=== PATIENT | male | born 1990 | race Two or more races ===

== ENCOUNTER 2025-11-10 22:22 | Emergency (ER) | payer OTHER, SELFPAY ==
[2025-11-10 22:50] VITALS: BP 186/110; PULSE 92; RESP 20; TEMP 36.7; O2SAT 98; BMI 25.2
--- NOTE | 2025-11-10 23:11 | EKG_ITS ---
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
--- NOTE | 2025-11-10 23:11 | XR_ITS ---
Examination: CT brain head without contrast. 2-D sagittal coronal reconstructions Date and time of exam: November 10, 2025, 11:27 p.m. COMPARISON: February 11, 2024 INDICATIONS: Onset headache today CTDI: vol (mGy): 50.3 DLP: (mGycm): 975 Technique: Multiple CT axial sections of the brain have been obtained, 5 mm slice thickness. Contrast has not been administered. 2-D sagittal, coronal reconstructions have been obtained Low dose protocols were performed. One or more of the following dose reduction techniques were used; automated exposure control, adjustment of the mA and/or KV according to patient size, use of iterative reconstruction technique. Findings: No significant ventricular enlargement. Intra-axial or extra-axial hemorrhage density is not seen. No mass effect or midline shift Basal cisterns are not remarkable. Fourth ventricle is midline. Cranial vault intact. Impression: Negative for acute hemorrhage, mass effect or midline shift Advise clinical correlation and follow-up accordingly
--- NOTE | 2025-11-10 23:12 | PD.EDRME ---
Rapid Medical Screening Exam RME Arrival date/time: This is a case of 35-year-old male with history of diabetes and hypertension came in in the emergency room due to headache and dizziness today worsening of the symptoms this patient decided to start consulted in the emergency room Chief Complaint: Headache Time Seen by Provider: 11/10/25 23:06 Vital signs: Vital Signs Temperature 98.1 F 11/10/25 22:50 Pulse Rate 92 11/10/25 22:50 Respiratory Rate 20 11/10/25 22:50 Blood Pressure 186/110 H 11/10/25 22:50 Pulse Oximetry (%) 98 11/10/25 22:50 Oxygen Delivery Method Room Air 11/10/25 22:50 Exam: Neurological exam is normal awake alert oriented x 4 no focal deficit GCS 15/15 steady gait clear breath sound normal rate regular rhythm no murmur Clinical Impression: Headache
[2025-11-10 23:39] VITALS: BP 190/114; PULSE 78
[2025-11-10 23:39] LABS: Base Excess, Venous 6 (-3-3); O2 Saturation, Venous 66 % (96-97); PCO2, Venous 44 mmHg (36-56); PO2, Venous 32 mmHg (15-58); pH, Venous 7.45 (7.33-7.66)
[2025-11-10 23:41] LABS: Basophils # (Auto) 0.1 Thou/mm3 (0.0-0.2); Basophils % (Auto) 1 % (0-2.5); Eosinophils # (Auto) 0.3 Thou/mm3 (0.0-0.5); Eosinophils % (Auto) 2 % (0-10); Hematocrit 35.7 % (41.0-53.0); Hemoglobin 11.9 g/dL (13.5-16.0); Immature Granulocytes Auto 0.05 Thou/mm3 (0.00-0.00); Lymphocytes # (Auto) 4.9 Thou/mm3 (1.0-4.8); Lymphocytes % (Auto) 35 % (10-50); Mean Corpuscular HGB Conc 33.3 g/dl (31.0-37.0); Mean Corpuscular Hemoglobin 29.9 pg (25.0-35.0); Mean Corpuscular Volume 90 fL (80-100); Monocytes # (Auto) 1.0 Thou/mm3 (0.0-0.8); Monocytes % (Auto) 7 % (0-12); Neutrophils # (Auto) 7.5 Thou/mm3 (1.8-7.7); Neutrophils % (Auto) 54 % (37-80); Nucleated Red Blood Cell # 0.00 Thou/mm3 (0.00-0.00); Nucleated Red Blood Cell % 0 /100 WBC (0); Platelet Count 410 Thou/mm3 (140-440); RDW Standard Deviation 41.9 fL (35.1-43.9); Red Blood Count 3.98 Miln/mm3 (4.50-5.90); White Blood Count 13.8 Thou/mm3 (3.8-10.6)
[2025-11-10 23:43] VITALS: BP 190/114; PULSE 80; O2SAT 99
[2025-11-10 23:48] LABS: Beta Hydroxybutyrate 0.1 mmol/L (<0.6)
[2025-11-11 00:02] LABS: Alanine Aminotransferase 42 U/L (10-49); Albumin, Serum 3.1 gm/dL (3.5-5.0); Albumin/Globulin Ratio 1.2 (1.2-2.2); Alkaline Phosphatase 105 U/L (46-116); Anion Gap 7 (7-16); Aspartate Amino Transferase 48 U/L (0-34); BUN/Creatinine Ratio 11 Ratio (12-20); Bilirubin,Total 0.3 mg/dL (0.3-1.2); Blood Urea Nitrogen 13 mg/dL (9-23); Calcium 8.1 mg/dL (8.3-10.6); Calcium (Corrected) 8.8 mg/dL (8.5-10.1); Carbon Dioxide 30.7 mMol/L (20.0-31.0); Chloride 106 mMol/L (98-107); Creatinine (Component) 1.2 mg/dL (0.6-1.3); Estimated Creatinine Clearance 77.5 mL/min (>60); Globulin 2.6 gm/dL (2.3-3.5); Glucose 195 mg/dL (74-106); Osmolality,Calculated 291 (275-295); Potassium 3.9 mMol/L (3.4-5.1); Sodium 144 mMol/L (136-145); Total Protein 5.7 gm/dL (5.7-8.2); Troponin I < 0.020 ng/mL (0.0-0.045); eGFR > 60 See Note
[2025-11-11 00:39] VITALS: BP 133/89; PULSE 87; RESP 16; TEMP 36.7; O2SAT 98
--- NOTE | 2025-11-11 01:17 | EDNOTE_ITS ---
ED Headache RME/HPI General Chief Complaint: Headache Stated Complaint: HEADACHE Time Seen by Provider: 11/10/25 23:06 Arrival date/time: 11/10/25 22:22 RME / HPI RME / HPI Narrative: This is a case of 35-year-old male with history of diabetes and hypertension came in in the emergency room due to headache and dizziness today worsening of the symptoms this patient decided to start consulted in the emergency room Dr. Engle?s Main ED Evaluation: 35yo male presents to the ED for complaints of headache and dizziness x 2 days. Patient denies any history of similar symptoms. He is not on any antihypertensives. Patient denies any chest pain/pressure/tightness, shortness of breath, cough, or any other associated symptoms. Related Data Previous Rx's ?Medication ?Instructions ?Recorded naproxen 500 mg tablet 500 mg PO BID PRN pain #30 t abs 02/11/24 amlodipine 10 mg tablet 10 mg PO QDAY #30 tabs 11/11 Allergies Allergy/AdvReac Type Severity Reaction Status Date / Time acetaminophen (From Vicodin) Allergy Verified 11/10/25 22:23 hydrocodone (From Vicodin) Allergy Verified 11/10/25 22:23 Review of Systems Review of Systems Systems Reviewed: All systems reviewed, normal except as documented Past Medical History Social History SMOKING STATUS: Never smoker ED Exam Narrative Physical exam: Generally patient is alert and in no obvious distress, heart regular rate and rhythm, lungs clear to auscultation equal bilaterally, abdomen soft bowel sounds present also nontender, skin are warm pale with dry, neurologic exam showed no focal motor deficits no ataxia Ju Coma Scale 15 Course Quality Measures none Orders Category Date Time Status EKG (ED ONLY) *Do not use* NOW Care 11/10/25 23:[address] head/brain wo con Stat Exams 11/10/25 23:11 Completed EKG (ED Only) Stat Exams 11/10/25 23:11 Draft Beta Hydroxybutyrate Stat Lab 11/10/25 23:26 Completed CBC Stat Lab 11/10/25 23:26 Completed CMP [Comprehensive Metabolic Panel] Stat Lab 11/10/25 23:26 Completed Troponin I Stat Lab 11/10/25 23:26 Completed Venous Blood Gas Stat Lab 11/10/25 23:26 Completed cloNIDine HCL [Catapres] Med 11/10/25 23:11 Discontinued 0.2 mg PO X1 ONE Vital Signs Vital signs: Vital Signs Temperature 98.1 F 11/10/25 22:50 Pulse Rate 92 11/10/25 22:50 Respiratory Rate 20 11/10/25 22:50 Blood Pressure 186/110 H 11/10/25 22:50 Pulse Oximetry (%) 98 11/10/25 22:50 Oxygen Delivery Method Room Air 11/10/25 22:50 Headache MDM Narrative MDM Narrative:: Scribe Attestation: 11/11/25 - Shirin Rangel am scribing for and in the presence of Dr. Engle. Patient arrives with a 191/[address] is negative. Blood work is unremarkable. Patient received clonidine prior to my evaluation here in the emergency room which brought the blood pressure down to 138/65. Patient will be started on amlodipine to be taken as prescribed. Follow-up with his doctor. Return to ER as needed or if condition worsens. EKG done at 11:25 PM shows normal sinus rhythm at a rate of [address] segment change. I interpreted all labs. Patient data External records reviewed:: [facility] previous records (Per chart review, patient was seen here on 02/11/24 for otitis media.) Clinical information provided by:: patient Social determinants that could affect healthcare access:: none Patient has the following chronic illnesses:: DM How is presenting disease/condition affected by chronic disease/condition?: uneffected by Evaluation data The following diagnostics were reviewed and interpreted by me:: lab results, radiology exam(s) and EKG tracing(s) Lab and/or radiology exams considered but not ordered:: none Interpretation Summary: [facility] Report Signed Patient: JAVIER JOHNSON. Record#: [id number] Birthdate: 1990 Age/Sex: 35 / M Location: [facility] Attending Dr: Ordering Physician: Lonnie Maeyr Date of Service: 11/10/25 Procedure(s): CT head/brain wo con Accession Number(s): [id number] cc: Greg Prajapati MD; Lucia Varela MD; Lonnie Mayer~ Examination: CT brain head without contrast. 2-D sagittal coronal reconstructions Date and time of exam: November 10, 2025, 11:27 p.m. COMPARISON: February 11, 2024 INDICATIONS: Onset headache today CTDI: vol (mGy): 50.3 DLP: (mGycm): 975 Technique: Multiple CT axial sections of the brain have been obtained, 5 mm slice thickness. Contrast has not been administered. 2-D sagittal, coronal reconstructions have been obtained Low dose protocols were performed. One or more of the following dose reduction techniques were used; automated exposure control, adjustment of the mA and/or KV according to patient size, use of iterative reconstruction technique. Findings: No significant ventricular enlargement. Intra-axial or extra-axial hemorrhage density is not seen. No mass effect or midline shift Basal cisterns are not remarkable. Fourth ventricle is midline. Cranial vault intact. Impression: Negative for acute hemorrhage, mass effect or midline shift Advise clinical correlation and follow-up accordingly Dictated By: Greg Prajapati MD Signed By: <Electronically signed by Greg Prajapati MD in [place]> 11/10/25 8808 Medications / Prescriptions Medications or Prescriptions considered but not ordered:: none Medication administrations:: Medication Administration History Discontinued Medications Clonidine (Clonidine Hcl 0.1 Mg Tablet) 0.2 mg PO X1 ONE Stop: 11/10/25 23:12 Last Admin: 11/10/25 23:39 Dose: 0.2 mg Documented By: TA see above Consultations Consultation(s) initiated? (list below): No Diagnosis Differential diagnosis headache: other (See MDM) Most likely diagnosis given after review of the tests above:: see clinical impression below Admission Indicated Admission indicated?: not indicated Admission Request Was there a request for admission?: No Disposition Plan Disposition Plan: Discharge Discharge Attestation Discharge Attestation: The patient and all family members were given an opportunity to ask questions and understood the discharge instructions. Discharge instructions specifically effects, indications for sooner follow up or return to the emergency department, and the expected course of current diagnosis. Patient condition: Stable Discharge Plan Plan Patient Disposition: HOME (Self Care) Prescriptions/Referrals Prescriptions/Med Rec: New amlodipine 10 mg tablet 10 mg PO QDAY Qty: 30 0RF No Action naproxen 500 mg tablet 500 mg PO BID PRN (Reason: pain) Qty: 30 0RF Referrals: Lucia Varela MD [Primary Care Provider] - In 1 week Problem List Clinical Impression: Hypertension, Cephalgia Patient/Caregiver Discharge Instructions Education Materials: ED Hypertension, New (Begin Treatment) Additional Instructions: Medication as prescribed. Follow-up with your doctor. Return to ER as needed or if condition worsens. Print Language: Hungarian Stand Alone Forms: Tiffany Award Info., Patient Portal Info Letter
[2025-11-11 01:42] VITALS: BP 125/64; PULSE 78; RESP 18; TEMP 36.6; O2SAT 99
== END 2025-11-11 01:45 | disposition home or self-care (01) ==
PROVIDERS: Nurse Practitioner Family; Emergency Provider Emergency Medicine; PCP Family Medicine
DX: I10 Essential (primary) hypertension (principal); R51.9 Headache, unspecified; R94.31 Abnormal electrocardiogram [ECG] [EKG]
CPT/HCPCS: 36415; 70450; 80053; 82010; 82803; 84484; 85025; 93005; 99283; A9270